=== PATIENT | female | born 1950 | race Caucasian/White ===

== ENCOUNTER 2023-07-24 08:44 | Emergency (ER) | payer MEDICARE, BC, SELFPAY ==
[2023-07-24 08:49] VITALS: BP 92/79
--- NOTE | 2023-07-24 09:50 | ED.GENMED ---
History of Present Illness
<Anu López PA-C - Last Filed: 07/24/23 14:38>
General
Chief Complaint: Musculo-Skeletal Complaint
Source: patient
Exam Limitations: none
Time Seen by Provider: 07/24/23 09:19
Nursing documentation reviewed up to this point in time: agreed with
Travel History
Have you had any contact with someone who has COVID-19?: No
Do you have any symptoms of coronavirus? Fever > 100 degrees, chills, cough, shortness of breath, sore throat, loss of taste or smell, muscle aches, or headache?: No
History of Present Illness
History of Present Illness:
Patient is a 72 year old female w/ history osteoporosis, OA, GERD presenting for evaluation of right knee pain. Patient states symptoms initially started about 1 week ago after doing chair yoga at home. The morning after chair yoga she noticed
clicking and popping in the knee with associated pain. Over the course of the past week patient felt that symptoms were improving and she was able to go for a few walks. Last night, she was getting up from the couch around dinnertime and felt her
knee lock. She endorses significant increase in pain since that time. Pain is worse with flexion and extension of knee. She has been able to bear some weight with knee slightly flexed. She states the pain is localized mainly to the medial aspect of
the knee with some radiation up into the hip and down to the lower leg. She denies any fever, chills, chest pain, shortness of breath. She has not noticed any recent bump behind the knee. At the time of the chair yoga she did not notice any acute
injury. She has tried Advil with minimal improvement. She did start wearing a knee brace that she had at home.
She takes meloxicam 7.5mg daily for arthritis.
Phy Exam
<Anu López PA-C - Last Filed: 07/24/23 14:38>
Physical Exam
Physical Exam:
General: Well appearing and non-toxic, vital signs reviewed- patient afebrile
HEENT: Atraumatic, normocephalic; protecting airway
Neck: appears supple
CV: Regular rate and rhythm, no evidence of cyanosis
Resp: No evidence of respiratory distress, lungs clear, no accessory muscle use
Abd: Soft, nontender, non-distended
Extremities: Mild diffuse swelling of right knee; pain with flexion and extension; right leg neurovascularly intact, negative straight leg raise, no bony tenderness; no pain with internal or external rotation of hips bilaterally
Neuro: alert and oriented to person, place, time; speech normal, no focal motor deficits, no focal neurological deficits
Psych: Normal affect
Skin: Intact, no rashes
Course
<Anu López PA-C - Last Filed: 07/24/23 14:38>
Orders/Labs/Results
Orders:
Orders
07/24/23 08:52
CR Knee- Right 4 Or More View* Urgent
Comment:
Reason For Exam: pain
07/24/23 10:41
Acetaminophen [Tylenol] 650 mg PO NOW STA
Tramadol HCl [Ultram] 50 mg PO NOW STA
07/24/23 10:42
Knee Immobilizer Right-Treatme ONCE
Vital Signs
Initial and Last Documented VS:
Initial Vital Signs
Temp Pulse Resp BP Pulse Ox
98.1 F 73 18 92/79 100
07/24/23 08:49 07/24/23 08:49 07/24/23 08:49 07/24/23 08:49 07/24/23 08:49
Last Documented Vital Signs
Temp Pulse Resp BP Pulse Ox
98.1 F 73 18 92/79 100
07/24/23 08:49 07/24/23 08:49 07/24/23 08:49 07/24/23 08:49 07/24/23 08:49
<Peewee Mora MD - Last Filed: 07/24/23 14:41>
Orders/Labs/Results
Orders:
Orders
07/24/23 08:52
CR Knee- Right 4 Or More View* Urgent
Comment:
Reason For Exam: pain
07/24/23 10:41
Acetaminophen [Tylenol] 650 mg PO NOW STA
Tramadol HCl [Ultram] 50 mg PO NOW STA
07/24/23 10:42
Knee Immobilizer Right-Treatme ONCE
Vital Signs
Initial and Last Documented VS:
Initial Vital Signs
Temp Pulse Resp BP Pulse Ox
98.1 F 73 18 92/79 100
07/24/23 08:49 07/24/23 08:49 07/24/23 08:49 07/24/23 08:49 07/24/23 08:49
Last Documented Vital Signs
Temp Pulse Resp BP Pulse Ox
98.1 F 73 18 92/79 100
07/24/23 08:49 07/24/23 08:49 07/24/23 08:49 07/24/23 08:49 07/24/23 08:49
<Anu López PA-C - Last Filed: 07/24/23 14:38>
MDM/Problems Addressed
Differential Diagnosis Includes:
Knee sprain, osteoarthritis, medial meniscus tear
MDM/Problems Addressed:
Patient is a 72 year old female with history of OA, osteoporosis, GERD presenting for evaluation of right knee pain. Symptoms started about a week ago with clicking and popping following a chair yoga class. Symptoms are improving over the past
week and last night when she stood up from the couch and felt her knee 'lock'. She has significant pain with flexion and weightbearing since. She had no known trauma during chair yoga class. Patient is well-appearing on exam, hemodynamically
stable. She is afebrile. She has very mild diffuse swelling around right knee. Pain worse with flexion and extension of the knee most severe on medial aspect. Right leg neurovascularly intact. X-ray of knee obtained in triage shows no signs of
fracture or dislocation but some degenerative changes. Suspect likely sprain of knee versus meniscal injury. Will place in knee immobilizer. Tylenol and tramadol for pain. She is stable for discharge with return precautions, supportive care at
home, Ortho follow-up as needed. She is comfortable with plan. All questions answered.
Chronic conditions affecting care:
Osteoarthritis, osteoporosis, GERD
Acute Exacerbation and/or Progression of Chronic Illness:
Right knee pain
<Anu López PA-C - Last Filed: 07/24/23 14:38>
*Radiology
Radiology exam reviewed: preliminary read by ED provider and radiology read reviewed
*Pulse Oximetry
Patient hypoxic: no
*Clinical Nurse Manager Interpretation
Rate: Clinical Nurse Manager- N/A
*Critical Care Note
Total Time (30-74mins, 75-104mins- exclusive of procedures): Not Applicable
ED Attending Note
<Anu López PA-C - Last Filed: 07/24/23 14:38>
-
Portions of this chart may have been created with voice recognition software.� Occasional wrong word or��sound alike� substitutions may have occurred due to the inherent limitations of voice recognition software.
<Peewee Mora MD - Last Filed: 07/24/23 14:41>
ED Attending Note
Patient seen and examined by attending physician: Yes
ED Attending Note:
Patient with history osteoporosis, presents to ED secondary to persistent left knee pain, which occurred when she stood up from reclining chair last night. Denies direct trauma. Denies loss of sensation or weakness. Patient has had difficult time
walking secondary to pain. Of note, 1 week ago, patient reports similar knee and leg pain after completing chair yoga session. Pain occurred 1 day after the session. Symptoms gradually improved until complete resolution 1 day ago. Denies
previous history of similar symptoms. Denies fever or chills.
Physical Exam
General: mild painful distress, not acutely ill. afebrile
Head: nc/at. eomi
Neck: supple. no meningeal signs.
Neuro: alert and oriented. no focal neurological deficits
Skin: no rash
Psychiatric: well kept. interactive and cooperative
Extremities: left knee: mild tenderness to palpation over medial aspect of knee without swelling/erythema/ecchymosis. negative valgus/varus maneuver.
X-ray: no acute findings.
History and exam consistent with likely knee strain versus exacerbation of underlying arthritis. Otherwise, patient without any evidence of direct trauma and is neurologically intact. Patient will be given knee immobilizer. The relief, along with
recommendation to utilize cane for support, as well as outpatient follow-up with orthopedic surgeon. Patient expresses understanding at time of discharge, to the care of her daughter.
Discharge Plan
Departure
Patient Disposition: Home (Routine Discharge)
Date of Disposition: 07/24/23
Time of Disposition: 10:48
Patient with high blood pressure during this ER visit?: No
Condition: Good
Covid-19: Not Applicable
Discharge Problem:
Knee pain, right
Instructions: Knee Immobilizer (DC), Knee Pain (DC)
Prescriptions:
New
tramadol 50 mg tablet
50 mg PO Q8H PRN (Reason: Pain) Qty: 14 0RF
Referrals:
Stephanie Dobson I., DO [Active] - As needed
UNKNOWN - PT DOES,NOT KNOW [Family Provider] -
Activity Restrictions/Additional Instructions:
-Return to the emergency department with any high fevers, chest pain, shortness of breath, numbness/tingling in right lower extremity, significant pain in right knee, worsening in current symptoms, or any other concerns
-You can take tylenol as needed for discomfort. A prescription has been sent for tramadol to take every 8 hours as needed for pain. This may cause drowsiness - do not take prior to driving.
-Follow-up with orthopedics for further evaluation/ treatment.
Interventions
Interventions:
*Risk Screen - Suicide Last Done: 07/24/23 11:03
*General Assessment Last Done: 07/24/23 08:49
*Neglect/Abuse Screening Last Done: 07/24/23 11:03
*ED COVID-19 Vaccine History Last Done: 07/24/23 08:49
*Nursing Disposition Last Done: 07/24/23 11:03
ED-Musculoskeletal Assessment Last Done: 07/24/23 10:15
Discharge Date and Time
Discharge Date/Time: 07/24/23 11:04
[2023-07-24] MEDS: TYLENOL 650 MG PO (10:47)
[2023-07-24] MEDS: ULTRAM 50 MG PO (10:47)
== END 2023-07-24 11:04 | disposition home or self-care (01) ==
LOC: EMR 08:44
PROVIDERS: EMERGENCY PHYSICIAN Emergency Medicine
DX: M25.561 Pain in right knee (principal); M81.0 Age-related osteoporosis without current pathological fracture; K21.9 Gastro-esophageal reflux disease without esophagitis
CPT/HCPCS: 99283; 29505; 73564

== ENCOUNTER → 2024-03-02 12:57 | Outpatient (REF) | payer MEDICARE, BC, SELFPAY | LOC: RCS 12:57 | PROVIDERS: ATTENDING PHYSICIAN Student in an Organized Health Care Education/Training Program; FAMILY PHYSICIAN Internal Medicine | DX: R01.1 Cardiac murmur, unspecified (principal) | CPT/HCPCS: 93306 ==

== ENCOUNTER 2024-03-13 11:16 | Inpatient (IN) | payer MEDICARE, BC, SELFPAY ==
[2024-03-13] VITALS (9 sets, daily range): BP systolic 65–151; BP diastolic 53–87; BMI 22.6; BMI 23.2
--- NOTE | 2024-03-13 06:23 | ED.GENMED ---
History of Present Illness
<Malik Freeman MD - Last Filed: 03/13/24 09:20>
General
Chief Complaint: Abdominal Symptoms
Time Seen by Provider: 03/13/24 06:04
<Zach Lawler MD, Resident - Last Filed: 03/14/24 09:15>
General
Source: patient and family
Travel History
Have you traveled to any high risk areas for coronavirus over the past 14 days?: No
Have you had any contact with someone who has COVID-19?: No
Do you have any symptoms of coronavirus? Fever > 100 degrees, chills, cough, shortness of breath, sore throat, loss of taste or smell, muscle aches, or headache?: No
History of Present Illness
History of Present Illness:
Nichole Lombardi, age 73, is here for evaluation of abdominal pain and distention. Her symptoms began on 03-10-24 when she had diarrhea and chills. She went to the urgent care and was prescribed amoxicillin. She also took loperamide that evening. She
has not been able to move her bowels since then, and experienced progressive bloating, distention and pain. She took simethicone which did not improve her symptoms. Of note, she has had chronic intermittent constipation. Denies nausea, vomiting,
fever, chills, night sweats or urinary symptoms.
Past History
<Zach Lawler MD, Resident - Last Filed: 03/14/24 09:15>
Past History
ED Past Medical History: Other (prediabetes; osteoarthritis; gastroesophageal reflux disease)
ED Past Surgical History: Other (tonsillectomy; left breast lumpectomy - benign; sinus polypectomy; )
Social History
Tobacco: Former smoker
Alcohol: Occasional
Drug: None
Review of Systems
<Zach Lawler MD, Resident - Last Filed: 03/14/24 09:15>
Review of Systems
All Other Systems: Not applicable
Constitutional: Reports no symptoms
EENT: Reports no symptoms
Respiratory: Reports no symptoms
Cardiac: Reports no symptoms
ABD/GI: Reports constipated and pain; Denies nausea, vomiting or diarrhea
: Reports no symptoms
Musculoskeletal: Reports no symptoms
Skin: Reports no symptoms
Neurological: Reports no symptoms
Endocrine: Reports no symptoms
Hematologic/Lymphatic: Reports no symptoms
Psychiatric: Reports no symptoms
Phy Exam
<Zach Lawler MD, Resident - Last Filed: 03/14/24 09:15>
General Physical Exam
General Presentation: well appearing and no apparent distress
General Skin: warm and dry
General Habitus: normal
General Mental: alert
General Hydration: appears well hydrated
ENT Exam
ENT Exam: EOMI, pharynx normal, neck supple and normocephalic
Eye Exam
Eye Exam: PERRL, cornea clear and conjunctiva normal
Cardiovascular Exam
Cardiovascular Exam: regular rate/rhythm, no edema, no murmur and normal peripheral pulses
Pulmonary Exam
Pulmonary Exam: lungs clear, no respiratory distress, no rales, no crackles, no rhonchi, no stridor, no wheezing and no cough
Gastrointestinal Exam
Gastrointestinal Exam: soft, no organomegaly, no cva tenderness, distended and tender
Palpation: left lower quadrant: Moderate tenderness and generalized: Minimal tenderness
Neurological Exam
Neurological Exam: alert, oriented x3, no motor deficits and speech normal
Musculoskeletal Exam
Musculoskeletal Exam: full ROM and no edema
Skin Exam
Skin Exam: normal color, warm/dry, no rash and no petechia
Psychiatric Exam
Psychiatric Exam: normal mood/affect
Course
<Malik Freeman MD - Last Filed: 03/13/24 09:20>
Orders/Labs/Results
Orders:
Orders
03/13/24 06:07
IV Insert/Care/Rem.- Treatment PRN
03/13/24 06:22
CT Abd/pelvis W Iv Cont Urgent
Comment:
Reason For Exam: LLQ abd pain
03/13/24 06:30
Complete Blood Count/With Diff Urgent
Comprehensive Metabolic Panel Urgent
Lipase Urgent
03/13/24 08:55
Urinalysis Reflex To Culture Urgent
Date Specimen was Collected: 03/13/24
Time Specimen was Collected: 06:38
Urine Microscopic Reflex Cult Urgent
03/13/24 09:07
Piperacillin/Tazo 3.375 Gram [Zosyn] 3.375 gram in 50 ml IV NOW
03/13/24 09:12
IRAD CONSULT Urgent
Consulting Provider: Donell Eduardo
Was physician already notified: Yes
Reason for Consult/Procedure: intraabdominal abscess drainage
Acknowledgement that appropriate orders are entered: Yes
03/13/24 09:17
ColoRectal Surgery Consult Urgent
Consulting Provider: Quique Miller
Was physician already notified: Yes
03/13/24 Lunch
NPO
Allow oral meds: Yes
Allow clear liquids: No
Comment: sips of clears only with pills. NPO for IRAD procedure
03/13/24 10:05
Pantoprazole [Protonix IV] 40 mg .ROUTE .STK-MED ONE
03/13/24 10:30
Pantoprazole [Protonix IV] 40 mg IV NOW STA
03/13/24 10:32
PT/INR [Prothrombin Time] Urgent
03/13/24 11:01
Admit/Transfer Patient As Directed
Co-Sign Provider:
Level of Care: Inpatient admission
Assign to:: Telemetry
Physician / Group: Dr. Broderick Marquita/Hospitalists
Diagnosis: Colitis, bowel perforation and abscess
Reason for Telemetry: Arrhythmia
Date to Stop Telemetry: 03/16/24
Time to Stop Telemetry: 11:00
Reason for Hospitalization: Colitis, bowel perforation and abscess
Expected length of stay greater than two midnights?: Yes
ELOS- Estimated Length of Stay in days: 3
I certify the patient meets the requirements for IP care: Yes
PRN Pain Medication Management As Directed
May give lesser potent ordered pain med per pt: Yes
preference::
Protocol:: Medication orders for pain may be administered in a
manner that supports deferring to patient preference
when the pt is:
- Requesting an ordered lesser potent pain medication.
Least to most potent pain medications are defined
as: acetaminophen < NSAID < tramadol < opioids
(morphine, oxycodone, hydromorphone).
- Requesting a lesser dose of the same medication IF
ORDERED.
- Requesting a less intrusive route of administration
if both routes are prescribed by the provider (PO <
IV).
03/13/24 11:03
Code Status As Directed
Resuscitation Status: Full Code
03/13/24 12:00
CefTRIAXone [Rocephin] 2,000 mg IV Q24H
Sterile Water [Sterile Water For Injection] 20 ml IV Q24H
03/13/24 14:00
MetroNIDAZOLE 500 MG/100 ML [Flagyl 500 mg] 100 ml IV Q8H
03/13/24 16:39
Activity As Directed
Activity Level: As Tolerated
Intake/ Output As Directed
Frequency: q12h
Pneumatic Compression Sleeves As Directed
Type: Knee high
Vital Signs As Directed
Frequency: Per unit guidelines
DX Deep Vein Thrombosis Video Routine
03/13/24 18:00
Enoxaparin Sodium [Lovenox] 40 mg SC QPM
03/14/24 06:42
Basic Metabolic Panel IN AM
Complete Blood Count/With Diff IN AM
Magnesium IN AM
03/14/24 08:00
Cholecalciferol (Vitamin D3) [VITAMIN D3 (cholecalciferol)] 25 mcg PO DAILY
Multivitamin [Theragran] 1 tablet PO DAILY
Pantoprazole [Protonix] 40 mg PO DAILY
glucosamine-chondroitin [Osteo Bi-Flex] 1 tablet PO DAILY
03/15/24 06:00
Basic Metabolic Panel IN AM
Complete Blood Count/With Diff IN AM
03/16/24 06:00
Basic Metabolic Panel IN AM
Complete Blood Count/With Diff IN AM
03/16/24 11:00
DC Protocol for Telemetry ONCE
03/17/24 06:00
Basic Metabolic Panel IN AM
Complete Blood Count/With Diff IN AM
03/18/24 06:00
Basic Metabolic Panel IN AM
Complete Blood Count/With Diff IN AM
03/19/24 06:00
Basic Metabolic Panel IN AM
Complete Blood Count/With Diff IN AM
03/20/24 06:00
Basic Metabolic Panel IN AM
Complete Blood Count/With Diff IN AM
03/21/24 06:00
Basic Metabolic Panel IN AM
Complete Blood Count/With Diff IN AM
03/22/24 06:00
Basic Metabolic Panel IN AM
Complete Blood Count/With Diff IN AM
03/23/24 06:00
Basic Metabolic Panel IN AM
Complete Blood Count/With Diff IN AM
Abnormal Lab Results
03/13/24 03/13/24
06:30 08:55
RBC 4.16 L 10^6/uL
(4.20-5.40)
Hgb 11.3 L g/dL
(12.0-16.0)
Hct 33.1 L %
(37.0-47.0)
MCV 79.6 L fL
(81.0-99.0)
MPV 11.5 H fL
(7.4-10.4)
Abs Immat Gran (auto) 0.1 H 10^3/uL
(0-0.05)
Absolute Neuts (auto) 7.3 H 10^3/uL
(1.4-6.5)
Absolute Lymphs (auto) 0.9 L 10^3/uL
(1.2-3.4)
Immature Gran % 0.8 H %
(0-0.5)
Neutrophils % 81.5 H %
(42.2-75.2)
Lymphocytes % 10.4 L %
(20.5-51.1)
Glucose 101 H mg/dl
(70-99)
Total Protein 5.9 L g/dl
(6.3-8.2)
Urine Ketones 2+ A
(Negative)
Urine Bilirubin 1+ A
(Negative)
Leukocyte Esterase Rfl Trace A
(Negative)
03/13/24 06:30
03/13/24 06:30
Vital Signs
Initial and Last Documented VS:
Initial Vital Signs
Temp Pulse Resp BP Pulse Ox
98.3 F 79 20 128/71 100
03/13/24 05:41 03/13/24 05:41 03/13/24 05:41 03/13/24 05:41 03/13/24 05:41
Last Documented Vital Signs
Temp Pulse Resp BP Pulse Ox
97.9 F 64 16 134/62 100
03/14/24 07:00 03/14/24 07:00 03/14/24 07:00 03/14/24 07:00 03/14/24 07:00
<Zach Lawler MD, Resident - Last Filed: 03/14/24 09:15>
Orders/Labs/Results
Orders:
Orders
03/13/24 06:07
IV Insert/Care/Rem.- Treatment PRN
03/13/24 06:22
CT Abd/pelvis W Iv Cont Urgent
Comment:
Reason For Exam: LLQ abd pain
03/13/24 06:30
Complete Blood Count/With Diff Urgent
Comprehensive Metabolic Panel Urgent
Lipase Urgent
03/13/24 08:55
Urinalysis Reflex To Culture Urgent
Date Specimen was Collected: 03/13/24
Time Specimen was Collected: 06:38
Urine Microscopic Reflex Cult Urgent
03/13/24 09:07
Piperacillin/Tazo 3.375 Gram [Zosyn] 3.375 gram in 50 ml IV NOW
03/13/24 09:12
IRAD CONSULT Urgent
Consulting Provider: Donell Eduardo
Was physician already notified: Yes
Reason for Consult/Procedure: intraabdominal abscess drainage
Acknowledgement that appropriate orders are entered: Yes
03/13/24 09:17
ColoRectal Surgery Consult Urgent
Consulting Provider: Quique Miller
Was physician already notified: Yes
03/13/24 Lunch
NPO
Allow oral meds: Yes
Allow clear liquids: No
Comment: sips of clears only with pills. NPO for IRAD procedure
03/13/24 10:05
Pantoprazole [Protonix IV] 40 mg .ROUTE .STK-MED ONE
03/13/24 10:30
Pantoprazole [Protonix IV] 40 mg IV NOW STA
03/13/24 10:32
PT/INR [Prothrombin Time] Urgent
03/13/24 11:01
Admit/Transfer Patient As Directed
Co-Sign Provider:
Level of Care: Inpatient admission
Assign to:: Telemetry
Physician / Group: Dr. Broderick Juárez/Hospitalists
Diagnosis: Colitis, bowel perforation and abscess
Reason for Telemetry: Arrhythmia
Date to Stop Telemetry: 03/16/24
Time to Stop Telemetry: 11:00
Reason for Hospitalization: Colitis, bowel perforation and abscess
Expected length of stay greater than two midnights?: Yes
ELOS- Estimated Length of Stay in days: 3
I certify the patient meets the requirements for IP care: Yes
PRN Pain Medication Management As Directed
May give lesser potent ordered pain med per pt: Yes
preference::
Protocol:: Medication orders for pain may be administered in a
manner that supports deferring to patient preference
when the pt is:
- Requesting an ordered lesser potent pain medication.
Least to most potent pain medications are defined
as: acetaminophen < NSAID < tramadol < opioids
(morphine, oxycodone, hydromorphone).
- Requesting a lesser dose of the same medication IF
ORDERED.
- Requesting a less intrusive route of administration
if both routes are prescribed by the provider (PO <
IV).
03/13/24 11:03
Code Status As Directed
Resuscitation Status: Full Code
03/13/24 12:00
CefTRIAXone [Rocephin] 2,000 mg IV Q24H
Sterile Water [Sterile Water For Injection] 20 ml IV Q24H
03/13/24 14:00
MetroNIDAZOLE 500 MG/100 ML [Flagyl 500 mg] 100 ml IV Q8H
03/13/24 16:39
Activity As Directed
Activity Level: As Tolerated
Intake/ Output As Directed
Frequency: q12h
Pneumatic Compression Sleeves As Directed
Type: Knee high
Vital Signs As Directed
Frequency: Per unit guidelines
DX Deep Vein Thrombosis Video Routine
03/13/24 18:00
Enoxaparin Sodium [Lovenox] 40 mg SC QPM
03/14/24 06:42
Basic Metabolic Panel IN AM
Complete Blood Count/With Diff IN AM
Magnesium IN AM
03/14/24 08:00
Cholecalciferol (Vitamin D3) [VITAMIN D3 (cholecalciferol)] 25 mcg PO DAILY
Multivitamin [Theragran] 1 tablet PO DAILY
Pantoprazole [Protonix] 40 mg PO DAILY
glucosamine-chondroitin [Osteo Bi-Flex] 1 tablet PO DAILY
03/15/24 06:00
Basic Metabolic Panel IN AM
Complete Blood Count/With Diff IN AM
03/16/24 06:00
Basic Metabolic Panel IN AM
Complete Blood Count/With Diff IN AM
03/16/24 11:00
DC Protocol for Telemetry ONCE
03/17/24 06:00
Basic Metabolic Panel IN AM
Complete Blood Count/With Diff IN AM
03/18/24 06:00
Basic Metabolic Panel IN AM
Complete Blood Count/With Diff IN AM
03/19/24 06:00
Basic Metabolic Panel IN AM
Complete Blood Count/With Diff IN AM
03/20/24 06:00
Basic Metabolic Panel IN AM
Complete Blood Count/With Diff IN AM
03/21/24 06:00
Basic Metabolic Panel IN AM
Complete Blood Count/With Diff IN AM
03/22/24 06:00
Basic Metabolic Panel IN AM
Complete Blood Count/With Diff IN AM
03/23/24 06:00
Basic Metabolic Panel IN AM
Complete Blood Count/With Diff IN AM
Abnormal Lab Results
03/13/24 03/13/24
06:30 08:55
RBC 4.16 L 10^6/uL
(4.20-5.40)
Hgb 11.3 L g/dL
(12.0-16.0)
Hct 33.1 L %
(37.0-47.0)
MCV 79.6 L fL
(81.0-99.0)
MPV 11.5 H fL
(7.4-10.4)
Abs Immat Gran (auto) 0.1 H 10^3/uL
(0-0.05)
Absolute Neuts (auto) 7.3 H 10^3/uL
(1.4-6.5)
Absolute Lymphs (auto) 0.9 L 10^3/uL
(1.2-3.4)
Immature Gran % 0.8 H %
(0-0.5)
Neutrophils % 81.5 H %
(42.2-75.2)
Lymphocytes % 10.4 L %
(20.5-51.1)
Glucose 101 H mg/dl
(70-99)
Total Protein 5.9 L g/dl
(6.3-8.2)
Urine Ketones 2+ A
(Negative)
Urine Bilirubin 1+ A
(Negative)
Leukocyte Esterase Rfl Trace A
(Negative)
03/13/24 06:30
03/13/24 06:30
Vital Signs
Initial and Last Documented VS:
Initial Vital Signs
Temp Pulse Resp BP Pulse Ox
98.3 F 79 20 128/71 100
03/13/24 05:41 03/13/24 05:41 03/13/24 05:41 03/13/24 05:41 03/13/24 05:41
Last Documented Vital Signs
Temp Pulse Resp BP Pulse Ox
97.9 F 64 16 134/62 100
03/14/24 07:00 03/14/24 07:00 03/14/24 07:00 03/14/24 07:00 03/14/24 07:00
<Zach Lawler MD, Resident - Last Filed: 03/14/24 09:15>
*Critical Care Note
Total Time (30-74mins, 75-104mins- exclusive of procedures): Not Applicable
ED Attending Note
<Malik Freeman MD - Last Filed: 03/13/24 09:20>
ED Attending Note
Patient seen and examined by attending physician: Yes
I performed a history and physical exam of patient and discussed management with resident, I reviewed resident's note and agree with documented findings and plan of care.: Yes
ED Attending Note:
I have seen and evaluated the patient with a [id number] encounter. I have spoken to the resident and involved in the medical history, the physical exam, medical decision making.
Evaluation and management service: agree unless noted differently below.
Results interpretation: agree unless noted differently below.
Focused HPI: 73-year-old female with history of GERD presents to the emergency department for evaluation of abdominal pain. Patient reports onset of symptoms Tuesday and have been consistent since that time�initially an intense cramping pain now
more of an aching/soreness in the lower abdomen. Initially was associated with diarrhea on Tuesday although since then she has noted bloating and constipation. She said she has some subjective chills on Tuesday but no fever. Denies any nausea
or vomiting. Denies any urinary symptoms. She denies similar symptoms in the past. She was prescribed Augmentin by but symptoms have not improved which prompted ER visit.
Physical exam: Awake alert no distress. Vital signs normal. No cardiac rubs gallops or murmurs. Lungs clear to auscultation. Abdomen soft, mildly tender across lower abdomen with no peritoneal signs or masses appreciated. No CVA tenderness.
Medical Decision Makin-year-old female presents for evaluation of abdominal pain initially associate with diarrhea now with constipation and bloating. Vital signs normal. Exam as above. Will check labs including a CBC and a CMP. Check
urinalysis. Check CT abdomen pelvis. Suspect likely diverticulitis.
Labs reviewed: CBC shows mild anemia but no leukocytosis, CMP no clinically significant abnormalities. Urinalysis no signs of acute infection. Awaiting CT.
CT abdomen pelvis shows sigmoid colitis with probable 3.8 cm microperforation and abscess in the posterior pelvis. No free air noted. Case discussed with interventional radiology to review, likely drainable abscess. Case discussed with colorectal
surgery for consultation. Will treat with IV Zosyn. Case discussed with hospitalist for admission.
<Zach Lawler MD, Resident - Last Filed: 03/14/24 09:15>
-
Portions of this chart may have been created with voice recognition software.� Occasional wrong word or��sound alike� substitutions may have occurred due to the inherent limitations of voice recognition software.
Discharge Plan
Departure
Patient Disposition: Admit
Date of Disposition: 03/13/24
Time of Disposition: 09:14
Admit to doctor: Beni
Presentation/result/management discussed w/ accepting MD/DO: Hospitalist
Discharge Problem:
Colitis, Abdominal abscess
Interventions
Interventions:
*Risk Screen - Suicide Last Done: 03/13/24 05:41
*General Assessment Last Done: 03/13/24 05:41
*Neglect/Abuse Screening Last Done: 03/13/24 05:41
ED- Fall Risk Assessment Last Done: 03/13/24 08:00
*ED COVID-19 Vaccine History Last Done: 03/13/24 05:46
*Nursing Disposition Last Done: 03/13/24 16:33
RG-Akdqvc-Tewjxvgaed Assessment Last Done: 03/13/24 08:00
Discharge Date and Time
Discharge Date/Time: 03/13/24 16:34
[2024-03-13 07:10] LABS: % Basophils 0.3 % (0-2); % Immature Granulocytes 0.8 % (0-0.5); % Lymphocytes 10.4 % (20.5-51.1); % Neutrophils 81.5 % (42.2-75.2); Absolute Eosinophils 0.1 10^3/uL (0-0.7); Absolute Immature Granulocytes 0.1 10^3/uL (0-0.05); Absolute Lymphocytes 0.9 10^3/uL (1.2-3.4); Absolute Monocytes 0.5 10^3/uL (0.1-0.6); Absolute Neutrophils 7.3 10^3/uL (1.4-6.5); Hematocrit 33.1 % (37.0-47.0); Hemoglobin 11.3 g/dL (12.0-16.0); Mean Corp Hgb Conc. 34.1 g/dL (33.0-37.0); Mean Corpuscular Hgb 27.2 pg (27.0-31.0); Mean Corpuscular Volume 79.6 fL (81.0-99.0); Mean Platelet Volume 11.5 fL (7.4-10.4); Nucleated Red Blood Cells % 0 %; Platelet Count 189 10^3/uL (130-400); Red Blood Cell Count 4.16 10^6/uL (4.20-5.40); Red Cell Dist. Width 13.4 % (11.5-14.5)
[2024-03-13 07:14] LABS: ALT (SGPT) 24 U/L (0-35); AST (SGOT) 23 U/L (14-36); Albumin 3.5 g/dl (3.5-5.0); Alkaline Phosphatase 103 U/L (38-126); Blood Urea Nitrogen 13 mg/dl (7-17); Calcium 9.6 mg/dl (8.4-10.2); Carbon Dioxide 24 mmol/L (22-30); Chloride 104 mmol/L (98-107); Estimated Creatinine Clearance 55 ml/min; Glucose 101 mg/dl (70-99); Lipase 36 U/L (23-300); Potassium 3.6 mmol/L (3.5-5.1); Sodium 141 mmol/L (135-145); Total Bilirubin 0.9 mg/dl (0.2-1.3); Total Protein 5.9 g/dl (6.3-8.2); eGFR > 60.00
[2024-03-13 09:14] LABS: Urine Albumin Trace (Neg - Trace); Urine Bilirubin 1+ (Negative); Urine Character Clear (Clear); Urine Color Yellow; Urine Glucose Negative (Negative); Urine Ketone 2+ (Negative); Urine Leukocyte Trace (Negative); Urine Nitrite Negative (Negative); Urine Occult Blood Negative (Negative); Urine Urobilinogen Negative (Neg - 1+)
[2024-03-13] MEDS: ZOSYN 50 IV (09:23)
[2024-03-13 09:26] LABS: Urine Mucus Few
[2024-03-13 09:27] LABS: Urine Red Blood Cell 0-2 /HPF (0-2); Urine Squamous Cell 0-2 /LPF (Few)
[2024-03-13] MEDS: PROTONIX IV 40 MG IV (10:30)
[2024-03-13 10:57] LABS: INR 1.06; PT 13.6 Sec (11.4-14.6)
--- NOTE | 2024-03-13 11:04 | CON.CRS ---
Consultation
-
Date/Time Consultation Requested: 03/13/2024, 09:17
Date/Time Consultation Performed: 03/03/2024, 12:00
Requesting Provider: Malik Freeman MD
Performing Provider: Nuno Miller MD
Reason for Consultation: diverticulitis
Medical History
-
Chief Complaint: abdominal pain
History of Present Illness:
73yo female, with a past medical history of GERD and pre-diabetes, presents to [facility] ER this morning complaining of abdominal pain, distention, and constipation. The patient states her abdominal pain began on 03/10/24 which began with
diarrhea and chills. She went to urgent care and was prescribed amoxicillin. She took loperamide due to diarrhea, and developed constipation and bloating. On arrival to the ER, her WBC was 9.0. CT A/P shows probably colitis involving the sigmoid
colon. Probable 3.8 cm confined perforation with abscess in the posterior pelvis. We have been consulted for further surgical recommendations.
Past Medical History
Past Medical History: Other (prediabetes; osteoarthritis; gastroesophageal reflux disease)
Past Surgical History: , Gynecological (left breast lumpectomy), Tonsilectomy and Other (sinus polypectomy)
Social History
Tobacco: Former Smoker
Alcohol: Occasional
Drug: None
Family History
Family History: Reviewed & Not Pertinent
Allergies / Home Medications
Allergy/AdvReac Type Severity Reaction Status Date / Time
doxycycline Allergy Unknown Verified 03/13/24 05:46
�Medication �Instructions �Recorded �Confirmed �Type
amoxicillin 875 mg-potassium 1 tab PO BID 03/13/24 03/13/24 History
clavulanate 125 mg tablet
cholecalciferol (vitamin D3) 25 25 mcg PO DAILY 03/13/24 03/13/24 History
mcg (1,000 unit) tablet
glucosamine-chondroitin 250 mg-200 1 tab PO DAILY 03/13/24 03/13/24 History
mg tablet (Osteo Bi-Flex)
meloxicam 7.5 mg tablet 7.5 mg PO DAILY 03/13/24 03/13/24 History
omeprazole 20 mg capsule,delayed 20 mg PO DAILY 03/13/24 03/13/24 History
release
therapeutic multivitamin 1 tab PO DAILY 03/13/24 03/13/24 History
turmeric 400 mg capsule 400 mg PO DAILY 03/13/24 03/13/24 History
Review of Systems
-
History Source: Patient
Constitutional: Chills
Abdomen/GI: Abdominal Pain, Diarrhea and Constipated
A 10 point review of systems was completed, and was negative except as per HPI.
Physical Exam
Vital Signs
Temp 98.3 F 03/13/24 05:41
Pulse 71 03/13/24 10:31
Resp Rate 18 03/13/24 10:31
Blood pressure 129/87 03/13/24 10:31
SaO2 99 03/13/24 10:31
03/12/24 03/13/24 03/14/24
06:59 06:59 06:59
Actual Weight 55.1 kg
Body Mass Index (BMI) 22.6
Lab Results / Allergies
03/13/24 06:30
03/13/24 06:30
WBC 9.0 10^3/uL (4.8-10.8) 03/13/24 06:30
Hgb 11.3 g/dL (12.0-16.0) L 03/13/24 06:30
Hct 33.1 % (37.0-47.0) L 03/13/24 06:30
Plt Count 189 10^3/uL (130-400) 03/13/24 06:30
Abs Immat Gran (auto) 0.1 10^3/uL (0-0.05) H 03/13/24 06:30
Neutrophils % 81.5 % (42.2-75.2) H 03/13/24 06:30
Allergy/AdvReac Type Severity Reaction Status Date / Time
doxycycline Allergy Unknown Verified 03/13/24 05:46
Physical Exam
General: Well Developed and Well Nourished
GI: Soft, Non Tender and Non Distended
Skin: Warm and Dry
Neuro: AO x 3
Data Reviewed
-
CT Scan: Image Personally Visualized and interpreted, Report Reviewed by me and Discussed with Patient
Labs: Labs Reviewed by me, Discussed with Physician and Discussed with Patient
Old Records: Requested
Assessment / Plan
-
Assessment:
Plan:
-Agree with IR for drain placement
-Continue NPO and IVFs today
-IV antibiotics
-No urgent plans for surgery at this time. If she worsens, she will require a colectomy with colostomy creation. Discussed with patient.
--- NOTE | 2024-03-13 11:07 | HPS.HSE ---
Family Physician
-
Family Physician: Alex Rutherford MD
Chief Complaint
-
Abdominal Pain, Diarrhea
History of Present Illness
73 y/o female with past medical history of intermittent constipation, GERD, and arthritis, presented after she developed abdominal pain and diarrhea several days ago. Patient said she flew to [place] and went to [place], [place], five days
ago. Then, about 2.5 days later, she developed non-bloody diarrhea and chills, she then took Imodium but then had severe cramping abdominal pain. She then toook 2 Advil which helped relieve her pain, she then developed night sweats 1.5 days ago,
still had abdominal pain which had actually improved. She flew back to [place], [place] yesterday, went to urgent care where a urinalysis was done not suggesting urinary tract infection but she was given antibiotics just in case. Patient says she
still has some abdominal tenderness.
Medical History
Past Medical History
Past Medical History: Reports Other (As per HPI above)
Past Surgical History: Reports and Other (Nasal Polyp Removal, Left-Sided Benign Breast Tumor Removal)
Social History
Tobacco: Former Smoker
Alcohol: None
Drug: None
Family History
Family History: Cancer (Brain Tumor in Mother) and Other (Pre-Diabetes Mellitus)
Allergies / Home Medications
Allergies reflects when Allergies were last updated in [facility].
Home Medications with original date entered in [facility]
Allergy/Medication List:
Allergies
Allergy/AdvReac Type Severity Reaction Status Date / Time
doxycycline Allergy Unknown Verified 03/13/24 05:46
Home Medications
amoxicillin 875 mg-potassium clavulanate 125 mg tablet 1 tab PO BID 03/13/24
cholecalciferol (vitamin D3) 25 mcg (1,000 unit) tablet 25 mcg PO DAILY 03/13/24
glucosamine-chondroitin 250 mg-200 mg tablet (Osteo Bi-Flex) 1 tab PO DAILY 03/13/24
meloxicam 7.5 mg tablet 7.5 mg PO DAILY 03/13/24
omeprazole 20 mg capsule,delayed release 20 mg PO DAILY 03/13/24
therapeutic multivitamin 1 tab PO DAILY 03/13/24
turmeric 400 mg capsule 400 mg PO DAILY 03/13/24
Review of Systems
-
A 12 point ROS was completed and negative except as noted: Yes
Physical Exam
Vital Signs
Vital Signs
Temp Pulse Resp BP Pulse Ox
98.3 F 71 18 129/87 99
03/13/24 05:41 03/13/24 10:31 03/13/24 10:31 03/13/24 10:31 03/13/24 10:31
Physical Exam
General: No Apparent Distress, Comfortable and Conversant
HEENT: NormoCephalic and Moist mucous membranes
Respiratory: Clear
Cardiac: S1/S2 and Regular Rhythm
GI: Soft, Non Distended and Tender (Mild tenderness in the bilateral mid and lower quadrants. Rebound tenderness present.)
Musculoskeletal: No Cyanosis and No Edema
Skin: Warm and Dry
Neuro: Awake, Alert, AO x 3 and Nonfocal/grossly intact
Psych: Calm and Intact Judgment/Insight
Laboratory Results
-
03/13/24 06:30
03/13/24 06:30
Laboratory Results
PT 13.6 Sec (11.4-14.6) 03/13/24 10:32
INR 1.06 03/13/24 10:32
Total Bilirubin 0.9 mg/dl (0.2-1.3) 03/13/24 06:30
AST 23 U/L (14-36) 03/13/24 06:30
ALT 24 U/L (0-35) 03/13/24 06:30
Alkaline Phosphatase 103 U/L (38-126) 03/13/24 06:30
Lipase 36 U/L (23-300) 03/13/24 06:30
Impression/Plan
-
Assessment/Plan
Presentation with abdominal pain, diarrhea, chills
Probable Sigmoid Colitis on CT Imaging
Colonic Diverticula on CT Imaging
Colonic Abscess
Colonic Perforation
-Zosyn given in the ER
-Continue antibiotics with Rocephin and Flagyl
-IR drainage procedure
-NPO, bowel rest
-Colorectal surgery consulted, appreciate evaluation and recommendations
History of intermittent constipation
GERD
-Continue home PPI or equivalent when able
Arthritis
-Monitor for any pain
DVT PPx: Lovenox
Code Status: Full Code
--- NOTE | 2024-03-13 13:14 | CM ---
Addendum entered by Salome Apple 03/13/24 13:30:
Patient shared she usually sleeps on the couch on the 1st floor. There is a 1st floor set up in the home.
Addendum entered by Salome Apple 03/13/24 13:22:
Edit: Alex Santos
Original Note:
CM reviewed patient's chart. Spoke with patient at bedside. CM introduced self and role.
PCP: Dr. Alex Ulloa
Pharmacy: [facility] in [place] on [address]
Living situation: Patient lives with her . She is his caregiver. Her is legally blind and . Due to his diabetes, his eyes hemorrhaged and needed laser treatment to stop the bleeding. The laser treatment left scar tissue over his
eyes. She lives in [facility] [facility]. 7 steps to enter.
Finances: Patient denies any social insecurities. She is able to afford her housing, clothing, medications, food, utilities and transportation. She is retired. 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
DME/Ambulation: Patient ambulates independently. She does not own any DME. Patient is looking for a light 'pull-apart' scooter (so she can put it in the trunk), for her .
Transportation: Patient's daughter, Miriam, will provide transportation once she is discharged. Patient does drive.
Agreeable to home health care?: Yes, if needed.
ANTICIPATED DISCHARGE DISPOSITION: Home with
CM will continue to follow case and available for further assistance.
--- NOTE | 2024-03-13 15:34 | W.PN.UPDATE ---
Update Note
Progress Note Update
CT guided pelvic abscess drain placed, yielding 6 cc of blood tinged fluid mixed with pus. Sent for C+S.
D/W patient's son in law, who is a physician.
[2024-03-13] MEDS: FLAGYL 500 MG 100 IV ×2 (16:58→21:14)
[2024-03-13] MEDS: ROCEPHIN 2000 MG IV (16:58)
[2024-03-13] MEDS: STERILE WATER FOR INJECTION 20 ML IV (16:58)
[2024-03-13] MEDS: NSS 1000 IV (17:14)
[2024-03-13] MEDS: LOVENOX 40 MG SC (17:17)
[2024-03-13] MEDS: TYLENOL 1000 MG PO (18:07)
[2024-03-13] MEDS: TORADOL 15 MG IV (21:14)
--- NOTE | 2024-03-13 23:37 | W.PN.UPDATE ---
Update Note
Progress Note Update
The patient was seen and examined earlier. I reviewed the medical record and imaging studies, full consult to follow.
73-year-old female admitted earlier today with her first episode of sigmoid diverticulitis with a pelvic abscess. She remains hemodynamically stable and is not tachycardic. Her white count is normal and a CT scan of the abdomen and pelvis with
contrast reveals a 3.8 cm abscess associated with mild inflammation of the sigmoid colon. She underwent percutaneous drainage by IR via a transgluteal catheter. Approximately 6 mm of bloody purulent fluid was aspirated and cultures were sent. She
is up-to-date on colonoscopies.
On exam she appears quite comfortable. Her abdomen is soft and nontender.
I reviewed the current findings and treatment options. We discussed surgical management versus nonoperative management with the risks and benefits of each. At the present time I do not feel surgery is necessary. I explained that the catheter will
remain in place until the output reduces. Most often patients are discharged with a catheter and an outpatient catheter study will be arranged to rule out a persistent abscess or fistula. Ultimately she might require surgery depending upon her
clinical course. For now I recommend continuing with antibiotics and the drain. Clear liquids ordered. Surgery to be considered if her condition worsens. All questions answered and will follow with you.
[2024-03-14] MEDS: TYLENOL 1000 MG PO ×3 (02:32→17:03)
[2024-03-14 03:19] VITALS: BP 121/52
[2024-03-14] MEDS: FLAGYL 500 MG 100 IV ×3 (05:54→21:49)
[2024-03-14 07:00] VITALS: BP 134/62
[2024-03-14 07:11] LABS: % Basophils 0.6 % (0-2); % Eosinophils 1.1 % (0-6); % Immature Granulocytes 0.8 % (0-0.5); % Lymphocytes 16.4 % (20.5-51.1); % Monocytes 7.6 % (1.7-9.3); % Neutrophils 73.5 % (42.2-75.2); Absolute Eosinophils 0.1 10^3/uL (0-0.7); Absolute Immature Granulocytes 0.1 10^3/uL (0-0.05); Absolute Lymphocytes 1.1 10^3/uL (1.2-3.4); Absolute Monocytes 0.5 10^3/uL (0.1-0.6); Absolute Neutrophils 4.9 10^3/uL (1.4-6.5); Hematocrit 32.6 % (37.0-47.0); Hemoglobin 10.9 g/dL (12.0-16.0); Mean Corp Hgb Conc. 33.4 g/dL (33.0-37.0); Mean Corpuscular Volume 80.9 fL (81.0-99.0); Nucleated Red Blood Cells % 0 %; Platelet Count 196 10^3/uL (130-400); Red Blood Cell Count 4.03 10^6/uL (4.20-5.40); Red Cell Dist. Width 13.3 % (11.5-14.5); White Blood Cell Count 6.6 10^3/uL (4.8-10.8)
[2024-03-14 07:35] LABS: Blood Urea Nitrogen 14 mg/dl (7-17); Calcium 9.2 mg/dl (8.4-10.2); Carbon Dioxide 17 mmol/L (22-30); Chloride 108 mmol/L (98-107); Estimated Creatinine Clearance 54 ml/min; Glucose 67 mg/dl (70-99); Magnesium 1.7 mg/dl (1.6-2.3); Potassium 3.5 mmol/L (3.5-5.1); Sodium 142 mmol/L (135-145); eGFR > 60.00
[2024-03-14] MEDS: PROTONIX 40 MG PO (07:46)
[2024-03-14] MEDS: THERAGRAN 1 TABLET PO (07:46)
[2024-03-14] MEDS: NSS 1000 IV (07:46)
[2024-03-14] MEDS: VITAMIN D3 (cholecalciferol) 25 MCG PO (07:46)
[2024-03-14 11:00] VITALS: BP 132/68
--- NOTE | 2024-03-14 11:19 | W.PN.CRS1 ---
Today's Communication / Plan
-
full liquids
continue drain/iv antibiotics
Assessment/Plan
-
3.8 cm abscess associated with mild inflammation of the sigmoid colon, s/p IR drain
- WBC normal, vitals normal. Monitor.
- Advance diet to fulls.
- Continue IR drain in place - will need eventual study as an outpatient
- Continue IV antibiotics
- Cultures pending
- May ultimately require surgery, to be discussed as an outpatient
Subjective Data
Subjective Data
Date of Service: March 14, 2024
Patient states she is feeling much improved after her IR drain. She has no abdominal pain. She is tolerating clears. She denies nausea or vomiting.
Objective Data
-
Vital Signs
Temp Pulse Resp BP Pulse Ox
97.9 F 64 16 134/62 100
03/14/24 07:00 03/14/24 07:00 03/14/24 07:00 03/14/24 07:00 03/14/24 07:00
Intake & Output
03/13/24 03/14/24 03/15/24
06:59 06:59 06:59
Intake Total 565 / 565
Output Total 5
Balance 560 / 560
Intake:
Oral fluids 480 / 480
IV fluids (Total) 75 / 75
NSS 75 / 75
Amount instilled into Drain (
Total)
Left Lower Back Placed in IR
Output:
Drain Output (Total)
Left Lower Back Placed in IR
Other:
Number of approximated MODERATE 1
amounts of urine
Lab Results
03/14/24 06:42
03/14/24 06:42
Physical Exam
-
General: No Acute Distress and AOx3
Abdomen: Soft, Non Distended, Non Tender and Other (IR drain : serosanginous)
Skin: Warm and Dry
[2024-03-14] MEDS: ROCEPHIN 2000 MG IV (11:56)
[2024-03-14] MEDS: STERILE WATER FOR INJECTION 20 ML IV (11:56)
--- NOTE | 2024-03-14 14:55 | VNURNOTE ---
Home Health Liaison met with patient and family at bedside to discuss [facility] nurse/therapy, visits, schedule and homebound status. Patient is agreeable and understands that visits at home will be 2-3 x per week to assess and teach drain and medical
management. Reviewed with patient homebound status and that [facility] cannot see her if she is working. She is planning on taking 1-2 weeks off, she will see what Dr skinner are at [place].
[facility] brochure provided with contact information. Patient is aware that [facility] will contact them for start of care in 1-2 days after discharge from .
[facility] referral completed in [facility].
[2024-03-14 15:00] VITALS: BP 132/65
--- NOTE | 2024-03-14 16:43 | CM ---
Spoke with pt in room .
Pt has an IR drain.
Offered VN she requested [facility] .
Stephanie Rhoades [facility] liaison notified of referral.
PLAN Home with [facility]
[2024-03-14] MEDS: LOVENOX 40 MG SC (17:03)
--- NOTE | 2024-03-14 17:23 | W.PN.HOSP.TC ---
Today's Communication/Plan
-
Pain improved, diet advanced
Continue IV antibiotics for now, as per colorectal surgery
Appreciate colorectal surgery
Assessment / Plan
Assessment / Plan
Physical Exam
General: Not in acute distress
HEENT: Normocephalic and Moist mucous membranes
Respiratory: Clear
Cardiac: S1/S2 and Regular Rhythm
GI: Soft, Non Distended and Nontender. Drain present with serosanguinous drainage.
Musculoskeletal: No Cyanosis and No Edema
Skin: Warm and Dry
Neuro: Awake, Alert, AO x 3 and Nonfocal/grossly intact
Psych: Calm and Intact Judgment/Insight
Assessment/Plan
Presentation with abdominal pain, diarrhea, chills
Probable Sigmoid Colitis on CT Imaging
Colonic Diverticula on CT Imaging
Colonic Abscess - 3.8 cm abscess associated with mild inflammation of the sigmoid colon, s/p IR drain
Colonic Perforation
-Zosyn given in the ER
-Continue antibiotics with Rocephin and Flagyl
-IR drain placed on 03/14/24
-Diet advanced from NPO to Full Liquids
-Colorectal surgery consulted, appreciate evaluation and recommendations
-Continue IV antibiotics for now as per colorectal surgery
History of intermittent constipation
GERD
-Continue home PPI or equivalent when able
Arthritis
-Monitor for any pain
DVT PPx: Lovenox
Code Status: Full Code
Anticipated Discharge: 24 - 48 hours
Subjective/Interval History
-
Date of Service: March 14, 2024
Patient was seen and examined. She reported less abdominal pain today.
Objective Data
-
Labs:
Laboratory Results
03/14/24
06:42
WBC 6.6
Hgb 10.9 L
Hct 32.6 L
Plt Count 196
Sodium 142
Potassium 3.5
Chloride 108 H
Carbon Dioxide 17 L
BUN 14
Creatinine 0.7
Glucose 67 L
Calcium 9.2
Vital Signs:
Vital Signs
Temp Pulse Resp BP Pulse Ox
98.0 F 67 16 132/65 100
03/14/24 15:00 03/14/24 15:00 03/14/24 15:00 03/14/24 15:00 03/14/24 15:00
I&O
03/13/24 03/14/24 03/15/24
06:59 06:59 06:59
Intake Total 565 / 565
Output Total 5 / 5
Balance 560 / 560
[2024-03-14 19:07] VITALS: BP 142/67
[2024-03-14 23:24] VITALS: BP 138/68
[2024-03-15] MEDS: NSS IV (02:51)
[2024-03-15] MEDS: TYLENOL 1000 MG PO ×2 (02:53→09:47)
[2024-03-15] MEDS: MIRALAX 17 GRAMS PO (03:22)
[2024-03-15 03:25] VITALS: BP 145/77
[2024-03-15] MEDS: FLAGYL 500 MG 100 IV (05:34)
[2024-03-15 05:50] LABS: % Basophils 0.7 % (0-2); % Eosinophils 1.5 % (0-6); % Immature Granulocytes 1.2 % (0-0.5); % Lymphocytes 14.1 % (20.5-51.1); % Monocytes 8.8 % (1.7-9.3); % Neutrophils 73.7 % (42.2-75.2); Absolute Basophils 0.1 10^3/uL (0-0.2); Absolute Eosinophils 0.1 10^3/uL (0-0.7); Absolute Immature Granulocytes 0.1 10^3/uL (0-0.05); Absolute Monocytes 0.6 10^3/uL (0.1-0.6); Absolute Neutrophils 5.4 10^3/uL (1.4-6.5); Hematocrit 33.6 % (37.0-47.0); Hemoglobin 11.6 g/dL (12.0-16.0); Mean Corp Hgb Conc. 34.5 g/dL (33.0-37.0); Mean Corpuscular Hgb 27.8 pg (27.0-31.0); Mean Corpuscular Volume 80.4 fL (81.0-99.0); Mean Platelet Volume 10.7 fL (7.4-10.4); Nucleated Red Blood Cells % 0 %; Platelet Count 216 10^3/uL (130-400); Red Blood Cell Count 4.18 10^6/uL (4.20-5.40); Red Cell Dist. Width 13.1 % (11.5-14.5); White Blood Cell Count 7.3 10^3/uL (4.8-10.8)
[2024-03-15 06:14] LABS: Blood Urea Nitrogen 10 mg/dl (7-17); Calcium 9.1 mg/dl (8.4-10.2); Carbon Dioxide 23 mmol/L (22-30); Chloride 106 mmol/L (98-107); Estimated Creatinine Clearance 63 ml/min; Glucose 105 mg/dl (70-99); Potassium 3.7 mmol/L (3.5-5.1); Sodium 139 mmol/L (135-145); eGFR > 60.00
[2024-03-15 07:00] VITALS: BP 138/68
[2024-03-15] MEDS: VITAMIN D3 (cholecalciferol) 25 MCG PO (08:05)
[2024-03-15] MEDS: PROTONIX 40 MG PO (08:06)
[2024-03-15] MEDS: THERAGRAN 1 TABLET PO (08:06)
--- NOTE | 2024-03-15 09:56 | W.PN.CRS1 ---
Today's Communication / Plan
-
low residue diet
Assessment/Plan
-
3.8 cm abscess associated with mild inflammation of the sigmoid colon, s/p IR drain
- WBC normal, vitals normal.
- Advance diet to low residue.
- Continue IR drain in place - will need eventual study as an outpatient
- Continue IV antibiotics
- Cultures pending
- May ultimately require surgery, to be discussed as an outpatient
- Okay for d/c from our perspective later today if tolerating a low residue diet with a course of outpatient antibiotics. Will need to follow up with Dr. Miller in the office in two weeks. She will call the office if her drain has minimal output.
Will need eventual drain study.
Subjective Data
Subjective Data
Date of Service: March 15, 2024
Patient states she feels much improved since the IR drain. She has minimal pain. She had a bowel movement yesterday after taking miralax. She currently has no complaints.
Objective Data
-
Vital Signs
Temp Pulse Resp BP Pulse Ox
97.8 F 67 16 138/68 99
03/15/24 07:00 03/15/24 07:00 03/15/24 07:00 03/15/24 07:00 03/15/24 07:00
Intake & Output
03/14/24 03/15/24 03/16/24
06:59 06:59 06:59
Intake Total 565 / 565 1710 / 1710
Output Total
Balance 560 / 560 1690 / 1690
Intake:
Oral fluids 480 / 480 1700 / 1700
IV fluids (Total) 75 / 75
NSS 75 / 75
Amount instilled into Drain (
Total)
Left Lower Back Placed in IR
Output:
Drain Output (Total)
Left Lower Back Placed in IR
Other:
Number of approximated MODERATE 1 2
amounts of urine
Lab Results
03/15/24 05:17
03/15/24 05:17
Physical Exam
-
General: No Acute Distress and AOx3
Abdomen: Soft, Non Distended, Non Tender and Other (IR drain with serous output)
Skin: Warm and Dry
--- NOTE | 2024-03-15 10:36 | CON.ID ---
Consultation
-
Date/Time Consultation Requested: 03/15/2024 0750
Date/Time Consultation Performed: 03/15/2024 1020
Requesting Provider: Dr. Juárez
Performing Provider: Dr. Merritt
Reason for Consultation: Diverticular abscess
Chief Complaint / Past History
History of Present Illness
Nichole Lombardi is a 73-year-old female being evaluated in infectious disease consultation regarding diverticular abscess. History is obtained from chart review, along with patient interview.
The patient reports that she recently was in the [facility] on vacation. She reports that she was there for 2 days and then developed some diarrhea along with abdominal discomfort and cramps. These seem to subside, but she returned to the
[place] area. She was subsequently seen in a urgent care and was prescribed Augmentin. Despite taking antibiotics, the pain continued, and she presented to the emergency room on 03/13. Subsequent CT imaging was suggestive of a diverticular
abscess, and she underwent drain placement. Cultures from the drain are now showing Klebsiella oxytoca, and Infectious Diseases is asked to manage further antibiotic therapy.
She denies any prior fevers, but noted significant abdominal pain, being 9/10 at its worst. Pain is at this point in time mostly subsided. She denies any cough or congestion. She denies any dysuria.
Past History
Additional Past Medical History:
Prediabetes
Osteoarthritis
GERD
Additional Past Surgical History:
Tonsillectomy
Left breast lumpectomy
Sinus polypectomy
Allergy History:
doxycycline Allergy (Verified 03/13/24 05:46)
Nausea
Medications Reviewed: Yes
Current Antibiotics:
Ceftriaxone
Metronidazole
Social History
Tobacco: Former Smoker (Quit X 40 years)
Alcohol: Occasional
Drug: None
Personal:
Living: With Family
Employment: Employed
Family History
Family History: Not Pertinent
Review of Systems
Vital Signs
Temp Pulse Resp BP Pulse Ox
97.8 F 67 16 138/68 99
03/15/24 07:00 03/15/24 07:00 03/15/24 07:00 03/15/24 07:00 03/15/24 07:00
Physical Exam
Physical Exam
Constitutional: No Acute Distress, Well Developed, Comfortable and Non-toxic
Head: Normocephalic
Eyes: Pupils Equal, Pupils Round, No Conjunctival Hemorrhage and Sclera Anicteric
Oral: No Thrush and No Ulcers
Cardiovascular: Regular Rate and S1/S2; Negative S3/S4
Pulmonary: Clear; Negative Wheezes, Rales or Rhonchi
Gastrointestinal: Soft, Non Tender, Non Distended and Other (Left MARY in place with scant fluid)
Genito-Urinary: Negative Jo
Extremities: Negative Edema, Cyanosis or Erythema
Neurological: Awake and Alert
Psychological: Calm
.
Lab / Diagnostic Study Results
03/15/24 05:17
03/15/24 05:17
Abs Immat Gran (auto) 0.1 10^3/uL (0-0.05) H 03/15/24 05:17
Absolute Neuts (auto) 5.4 10^3/uL (1.4-6.5) 03/15/24 05:17
Absolute Lymphs (auto) 1.0 10^3/uL (1.2-3.4) L 03/15/24 05:17
Absolute Monos (auto) 0.6 10^3/uL (0.1-0.6) 03/15/24 05:17
Absolute Basos (auto) 0.1 10^3/uL (0-0.2) 03/15/24 05:17
Immature Gran % 1.2 % (0-0.5) H 03/15/24 05:17
Neutrophils % 73.7 % (42.2-75.2) 03/15/24 05:17
Lymphocytes % 14.1 % (20.5-51.1) L 03/15/24 05:17
Monocytes % 8.8 % (1.7-9.3) 03/15/24 05:17
Eosinophils % 1.5 % (0-6) 03/15/24 05:17
Basophils % 0.7 % (0-2) 03/15/24 05:17
PT 13.6 Sec (11.4-14.6) 03/13/24 10:32
INR 1.06 03/13/24 10:32
Ur Squamous Epith Cells 0-2 /LPF (Few) 03/13/24 08:55
Microbiology Results
Micro:
03/13/24 15:35 Wound Culture - Final
Abscess Klebsiella oxytoca
Gram Stain - Final
Wound/abscess/other Cult Final 03/13/24
Rare Klebsiella oxytoca
Organism 1 Klebsiella oxytoca
1. Klebsiella oxytoca
M.I.C. RX
--------- ---
Amoxicillin/Potas. Clavulanate <=8/4 S
Ampicillin >16 R
Ampicillin/Sulbactam <=4/2 S
Aztreonam <=4 S
Cefazolin <=2 S
Ertapenem <=0.5 S
Ciprofloxacin <=0.25 S
Gentamicin <=2 S
Meropenem <=1 S
Piperacillin/Tazobactam <=8 S
Tetracycline <=4 S
Tobramycin <=2 S
Trimethoprim/Sulfamethoxazole <=2/38 S
Imaging:
03/09/2024 CT abdomen/pelvis with IV contrast: There is likely colitis involving the sigmoid colon. There is a suspected 3.8 cm confined perforation with abscess in the posterior pelvis. Hepatic hemangioma noted. Renal cysts are seen.
Assessment / Plan
Diverticular abscess
- Culture with Klebsiella oxytoca
Abdominal pain; improved
Recommendations:
Patient tentatively for discharge today.
Sensitivities of recovered isolate reviewed.
Will transition to ciprofloxacin 500 mg p.o. twice daily and metronidazole 500 mg p.o. TID, to complete an additional 7 to 10 days of therapy.
Patient reports that she will be followed by Colorectal Surgery in regards to drain management and potential subsequent surgery.
[2024-03-15 11:00] VITALS: BP 136/64
--- NOTE | 2024-03-15 12:54 | W.PN.HOSP.TC ---
Today's Communication/Plan
-
Discharge today
Assessment / Plan
Assessment / Plan
Physical Exam
General: Not in acute distress
HEENT: Normocephalic and Moist mucous membranes
Respiratory: Clear
Cardiac: S1/S2 and Regular Rhythm
GI: Soft, Non Distended and Nontender. Drain present with serous drainage.
Musculoskeletal: No Cyanosis and No Edema
Skin: Warm and Dry
Neuro: Awake, Alert, AO x 3 and Nonfocal/grossly intact
Psych: Calm and Intact Judgment/Insight
Assessment/Plan
Presentation with abdominal pain, diarrhea, chills
Probable Sigmoid Colitis on CT Imaging
Colonic Diverticula on CT Imaging
Colonic Abscess - 3.8 cm abscess associated with mild inflammation of the sigmoid colon, status post IR drain
Colonic Perforation
-Zosyn given in the ER
-Continue antibiotics with Rocephin and Flagyl
-IR drain placed on 03/14/24
-Diet advanced from NPO to Full Liquids to Low Residue
-Colorectal surgery consulted, appreciate evaluation and recommendations
-Transition to ciprofloxacin 500 mg p.o. twice daily and metronidazole 500 mg p.o. TID, to complete an additional 7 to 10 days of therapy. Appreciate ID evaluation and recommendations.
-Follow up with Dr. Miller in his office in two weeks
History of intermittent constipation
GERD
-Continue home PPI or equivalent when able
Arthritis
-Monitor for any pain
DVT PPx: Lovenox
Code Status: Full Code
More than 30 minutes spent in discharge including
Final examination of the patient
Summarizing hospital stay
Instructions for continuing care to all relevant caregivers
Preparation of discharge records, prescriptions, and referral forms
Total time spent (in minutes): 40
Anticipated Discharge: Today
Subjective/Interval History
-
Date of Service: March 15, 2024
Patient was seen and examined. She reported that her pain was pretty much gone. She is open to going home today.
Objective Data
-
Labs:
Laboratory Results
03/15/24
05:17
WBC 7.3
Hgb 11.6 L
Hct 33.6 L
Plt Count 216
Sodium 139
Potassium 3.7
Chloride 106
Carbon Dioxide 23
BUN 10
Creatinine 0.5 L
Glucose 105 H
Calcium 9.1
Vital Signs:
Vital Signs
Temp Pulse Resp BP Pulse Ox
98.1 F 64 16 136/64 98
03/15/24 11:00 03/15/24 11:00 03/15/24 11:00 03/15/24 11:00 03/15/24 11:00
I&O
03/14/24 03/15/24 03/16/24
06:59 06:59 06:59
Intake Total 565 / 565 1710 / 1710
Output Total 5 / 5 / 20
Balance 560 / 560 1690 / 1690
[2024-03-15] MEDS: FLAGYL 500 MG PO (15:05)
--- NOTE | 2024-03-15 15:23 | CM ---
entered order for discharge.
Pt has an IR drain.
Stephanie Rhoades [facility] liaison set up [facility] .
Daughter Odalys li drive her home.
PLAN Home with [facility]
[2024-03-15 15:24] VITALS: BP 131/64
== END 2024-03-15 15:49 | disposition home health service (06) | DRG 391 ==
LOC: 3 WEST ACU 11:16
PROVIDERS: Radiology Vascular & Interventional Radiology; ADMITTING PHYSICIAN Hospitalist; CONSULT PHYSICIAN Internal Medicine Infectious Disease; CONSULT PHYSICIAN Surgery; EMERGENCY PHYSICIAN Emergency Medicine; FAMILY PHYSICIAN Internal Medicine
PROC: 0W9J30Z Drainage of Pelvic Cavity with Drainage Device, Percutaneous Approach (ICD-10-PCS; 2024-03-13)
DX: K57.20 Diverticulitis of large intestine with perforation and abscess without bleeding (principal); K65.1 Peritoneal abscess; Z87.891 Personal history of nicotine dependence; K52.9 Noninfective gastroenteritis and colitis, unspecified; K21.9 Gastro-esophageal reflux disease without esophagitis; M19.90 Unspecified osteoarthritis, unspecified site
CPT/HCPCS: 49406; 74177; 80048; 80053; 81003; 81015; 83690; 83735; 85025; 85610; 87070; 87077; 87186; 87205; 93005; 96365; 96375; 99152; 99153; 99285; Q9967

== ENCOUNTER → 2024-03-28 13:06 | Outpatient (REF) | payer MEDICARE, BC, SELFPAY ==
[2024-03-28 13:18] VITALS: BP 143/95; BP_SYST 80
== END ==
LOC: RADI 13:06
PROVIDERS: ATTENDING PHYSICIAN Physician Assistant; FAMILY PHYSICIAN Internal Medicine
DX: Z46.82 Encounter for fitting and adjustment of non-vascular catheter (principal); K65.1 Peritoneal abscess
CPT/HCPCS: 49424; 76080

== ENCOUNTER 2024-07-20 06:07 | Inpatient (IN) | payer MEDICARE, BC, SELFPAY ==
[2024-07-09 08:46] LABS: Hematocrit 41.1 % (37.0-47.0); Hemoglobin 13.7 g/dL (12.0-16.0); Mean Corp Hgb Conc. 33.3 g/dL (33.0-37.0); Mean Corpuscular Hgb 28.3 pg (27.0-31.0); Mean Corpuscular Volume 84.9 fL (81.0-99.0); Mean Platelet Volume 10.8 fL (7.4-10.4); Platelet Count 219 10^3/uL (130-400); Red Blood Cell Count 4.84 10^6/uL (4.20-5.40); Red Cell Dist. Width 13.2 % (11.5-14.5)
[2024-07-09 08:59] LABS: PT 12.4 Sec (11.4-14.6)
[2024-07-09 09:00] LABS: APTT 25.1 Sec (23.4-35.0)
[2024-07-09 09:07] LABS: Glycohemoglobin (HgbA1c) 5.2 % (4.0-5.6)
[2024-07-09 09:32] LABS: ALT (SGPT) 69 U/L (0-35); AST (SGOT) 45 U/L (14-36); Albumin 4.4 g/dl (3.5-5.0); Alkaline Phosphatase 83 U/L (38-126); Blood Urea Nitrogen 20 mg/dl (7-17); Calcium 9.6 mg/dl (8.4-10.2); Carbon Dioxide 28 mmol/L (22-30); Chloride 101 mmol/L (98-107); Glucose 94 mg/dl (70-99); Potassium 4.3 mmol/L (3.5-5.1); Sodium 139 mmol/L (135-145); Total Bilirubin 0.6 mg/dl (0.2-1.3); Total Protein 6.9 g/dl (6.3-8.2); eGFR > 60.00
[2024-07-09 14:02] VITALS: BMI 23.4
[2024-07-20] VITALS (16 sets, daily range): BP systolic 107–169; BP diastolic 53–89; BMI 23.4
[2024-07-20] MEDS: ENTEREG 12 MG PO (07:13)
[2024-07-20] MEDS: HEPARIN 5000 UNITS SC (07:13)
[2024-07-20] MEDS: TYLENOL 1000 MG PO (07:13)
[2024-07-20] MEDS: NORMOSOL-R/PLASMALYTE-A 1000 IV ×2 (07:14→15:53)
--- NOTE | 2024-07-20 11:32 | W.IMMPOSTOP ---
Surgical Immed Post Op Note
-
Primary Surgeon: Nuno Miller MD
Assistants: ADITYA Edmond and MACARIO Guerin
Pre-op Diagnosis: History of sigmoid diverticulitis with abscess
Post-op Diagnosis: Same
Procedure Performed: Robotic sigmoid colectomy with intracorporeal anastomosis
Anesthesia Type: GET
Specimen / Cultures: Sigmoid colon (suture is proximal)
Estimated Blood Loss: 15cc
Complications: None
Operative Findings: Chronic distal sigmoid diverticulitis
28mm EEA
Normal leak test
Patient's daughter updated.
[2024-07-20] MEDS: TYLENOL PO (12:57)
[2024-07-20] MEDS: TORADOL 15 MG IV ×2 (13:00→19:32)
[2024-07-20] MEDS: TYLENOL 650 MG PO ×2 (15:52→21:13)
[2024-07-20 16:24] LABS: Glucose - Point of Care 109 mg/dl (70-99)
--- NOTE | 2024-07-20 20:00 | PTCARENOTE ---
Pt. resting in bed post op, AAO x 3, vs stable, abdominal with 4 stab sites and one lower horizontal site intact, IVF's infusing, call thrasher at bedside.
[2024-07-21] MEDS: NORMOSOL-R/PLASMALYTE-A 1000 IV (00:02)
[2024-07-21] MEDS: TORADOL 15 MG IV ×4 (00:02→23:52)
[2024-07-21] MEDS: TYLENOL PO ×2 (00:06→04:14)
[2024-07-21 06:00] VITALS: BMI 22.9
[2024-07-21 07:45] VITALS: BP 112/53
[2024-07-21 07:50] LABS: % Basophils 0.1 % (0-2); % Eosinophils 0.1 % (0-6); % Immature Granulocytes 0.5 % (0-0.5); % Lymphocytes 23.5 % (20.5-51.1); % Neutrophils 66.8 % (42.2-75.2); Absolute Lymphocytes 1.9 10^3/uL (1.2-3.4); Absolute Monocytes 0.7 10^3/uL (0.1-0.6); Absolute Neutrophils 5.4 10^3/uL (1.4-6.5); Hematocrit 33.6 % (37.0-47.0); Hemoglobin 11.6 g/dL (12.0-16.0); Mean Corp Hgb Conc. 34.5 g/dL (33.0-37.0); Mean Corpuscular Hgb 28.9 pg (27.0-31.0); Mean Corpuscular Volume 83.6 fL (81.0-99.0); Mean Platelet Volume 11.2 fL (7.4-10.4); Nucleated Red Blood Cells % 0 %; Platelet Count 181 10^3/uL (130-400); Red Blood Cell Count 4.02 10^6/uL (4.20-5.40); Red Cell Dist. Width 12.7 % (11.5-14.5); White Blood Cell Count 8.1 10^3/uL (4.8-10.8)
[2024-07-21 08:23] LABS: Blood Urea Nitrogen 9 mg/dl (7-17); Calcium 8.6 mg/dl (8.4-10.2); Carbon Dioxide 27 mmol/L (22-30); Chloride 103 mmol/L (98-107); Estimated Creatinine Clearance 57 ml/min; Glucose 98 mg/dl (70-99); Potassium 3.8 mmol/L (3.5-5.1); Sodium 138 mmol/L (135-145); eGFR > 60.00
[2024-07-21] MEDS: PROTONIX 20 MG PO (09:56)
[2024-07-21] MEDS: ENTEREG 12 MG PO ×2 (09:57→21:06)
[2024-07-21] MEDS: TYLENOL 650 MG PO ×4 (09:57→21:06)
[2024-07-21 11:40] VITALS: BP 141/67
[2024-07-21] MEDS: NORMOSOL-R/PLASMALYTE-A IV (12:29)
[2024-07-21] MEDS: TORADOL IV ×2 (14:07→17:39)
[2024-07-21 15:09] VITALS: BP 105/60
--- NOTE | 2024-07-21 15:56 | W.PN.CRS1 ---
Addendum entered and electronically signed by Raj Rizo MD 07/21/24 19:28:
I saw and examined the patient.
The VISUAL EFFECTS ARTIST's note was reviewed and I agree with the note.
Comment:
No issues overnight. No N/V, having flatus and BMs, pain controlled.
AFVSS, ABD soft, mildly distended, appropriately tender; incisions clean dry and intact
WBC 8.1, Hb 11.6, Cr 0.7
�Advance to low residue
� Start DVT PPx with Lovenox
� Continue pain control with Tylenol, Toradol, oxycodone and Dilaudid as needed; continue Entereg until discharge
� DC George, monitor for void
� Encourage OOB/IS
Original Note:
Today's Communication / Plan
-
LRD
Assessment/Plan
-
73 yo female with h/o sigmoid diverticulitis complicated by abscess now POD #1 Robotic sigmoid colectomy with intracorporeal anastomosis
AFVSS
Mild acute anemia secondary to expected intraoperative losses and hemodilution
Following expected post operative course
--Advance to LRD
--D/C george for voiding trial
--d/c IVF
--prn and scheduled analgesics
--c/w PPI (takes at home) and home dosage of valtrex
--Lovenox and scds for VTE ppx
Tentative d/c tomorrow if tolerating diet and pain continues to be controlled
Subjective Data
Procedure
07/20/24 Robotic sigmoid colectomy with intracorporeal anastomosis
Subjective Data
Date of Service: July 21, 2024
Patient seen and examined at bedside with Dr. Rizo. Denies n/v. Tolerating liquids. Passing flatus and some brown/blood tinged stools. OOB to chair with family at bedside.
Objective Data
-
Vital Signs
Temp Pulse Resp BP Pulse Ox
97.4 F 79 18 105/60 100
07/21/24 15:09 07/21/24 15:09 07/21/24 15:09 07/21/24 15:09 07/21/24 15:09
Intake & Output
07/20/24 07/21/24 07/22/24
06:59 06:59 06:59
Intake Total 2900 / 2900 1080 / 1080
Output Total 1800 / 1800 225 / 225
Balance 1100 / 1100 855 / 855
Intake:
Oral fluids 1600 / 1600 480 / 480
IV fluids (Total) 1300 / 1300 600 / 600
Normosol 300 / 300
Output:
Urine, George 1150 / 1150 225 / 225
Urine, Voided 650 / 650
Lab Results
07/21/24 07:20
07/21/24 07:20
Physical Exam
-
General: No Acute Distress and AOx3
Abdomen: Soft, Non Distended and Tender (minimal incisional tenderness)
Skin: Warm and Dry
Incision: Clear, Dry, Intact (dermabond intact)
[2024-07-21 23:08] VITALS: BP 114/54
[2024-07-22] MEDS: TYLENOL PO (01:17)
[2024-07-22] MEDS: TYLENOL 650 MG PO ×3 (04:43→13:26)
[2024-07-22 05:17] LABS: Hematocrit 35.2 % (37.0-47.0); Hemoglobin 11.7 g/dL (12.0-16.0); Mean Corp Hgb Conc. 33.2 g/dL (33.0-37.0); Mean Corpuscular Hgb 28.2 pg (27.0-31.0); Mean Corpuscular Volume 84.8 fL (81.0-99.0); Mean Platelet Volume 11.3 fL (7.4-10.4); Platelet Count 173 10^3/uL (130-400); Red Blood Cell Count 4.15 10^6/uL (4.20-5.40); Red Cell Dist. Width 12.7 % (11.5-14.5)
[2024-07-22 05:36] LABS: Blood Urea Nitrogen 13 mg/dl (7-17); Calcium 8.9 mg/dl (8.4-10.2); Carbon Dioxide 27 mmol/L (22-30); Chloride 106 mmol/L (98-107); Estimated Creatinine Clearance 57 ml/min; Glucose 99 mg/dl (70-99); Sodium 140 mmol/L (135-145); eGFR > 60.00
[2024-07-22 06:00] VITALS: BMI 23.0
[2024-07-22] MEDS: TORADOL 15 MG IV (06:00)
[2024-07-22 07:50] VITALS: BP 128/69
[2024-07-22] MEDS: PROTONIX 20 MG PO (08:22)
[2024-07-22] MEDS: ENTEREG 12 MG PO (08:23)
--- NOTE | 2024-07-22 09:59 | W.PN.CRS1 ---
Addendum entered and electronically signed by Raj Rizo MD 07/22/24 15:09:
I saw and examined the patient.
The [employer] REPAIRER's note was reviewed and I agree with the note.
Comment:
Tolerating diet with bowel function, no further blood in the stool. Okay for DC on low residue for 1 week, follow-up Dr. Miller in 2 to 4 weeks.
Original Note:
Today's Communication / Plan
-
Dispo planning
Assessment/Plan
-
73 yo female with h/o sigmoid diverticulitis complicated by abscess now POD #2 Robotic sigmoid colectomy with intracorporeal anastomosis
AFVSS
Labs stable
Good evidence of bowel recovery
Following expected post operative course
--Advance to LRD
--Analgesics as needed
--c/w PPI (takes at home) and home dosage of valtrex
--Lovenox and scds for VTE ppx
Discharge to home
Subjective Data
Procedure
07/20/24 Robotic sigmoid colectomy with intracorporeal anastomosis
Subjective Data
Date of Service: July 22, 2024
Patient seen and examined at bedside with Dr. Rizo. Denies n/v. Tolerating diet. Pain is minimal. Passing flatus and brown stools. Voiding well.
Objective Data
-
Vital Signs
Temp Pulse Resp BP Pulse Ox
97.6 F 65 18 128/69 100
07/22/24 07:50 07/22/24 07:50 07/22/24 07:50 07/22/24 07:50 07/22/24 07:50
Intake & Output
07/21/24 07/22/24 07/23/24
06:59 06:59 06:59
Intake Total 2900 / 2900 2400 / 2400
Output Total 1800 / 1800 225 / 225
Balance 1100 / 1100 2175 / 2175
Intake:
Oral fluids 1600 / 1600 1800 / 1800
IV fluids (Total) 1300 / 1300 600 / 600
Normosol 300 / 300
Output:
Urine, Jo 1150 / 1150 225 / 225
Urine, Voided 650 / 650
Other:
Number of approximated MODERATE 3
amounts of urine
Number of unmeasured liquid
stools
Rectum 2
Lab Results
07/22/24 04:33
07/22/24 04:33
Physical Exam
-
General: No Acute Distress and AOx3
Abdomen: Soft, Non Distended and Tender (minimal incisional tenderness)
Skin: Warm and Dry
Incision: Clear, Dry, Intact (dermabond intact)
--- NOTE | 2024-07-22 10:25 | CM ---
Addendum entered by Chayito Zamudio 07/22/24 11:39:
For discharge today
Reports will have ride home
Given IMM
Plan - home no needs
Original Note:
Met with pt and her friend at bedside
Pt reports she lives with her in a 3 story town home; 8 steps to enter, 16 steps to 2nd fl. + 1/2 bath on FF
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
DME - none
SNF - denies past hx
HH - [facility] in past
Has ride at discharge
PCP - Alex Bartholomew
Pharm - [facility]
Plan - anticipate home no needs
[2024-07-22 13:15] VITALS: BP 126/58
[2024-07-22] MEDS: TORADOL IV (13:25)
--- NOTE | 2024-07-22 14:11 | W.DCSUMMARY ---
Discharge Summary
Discharge Data
Date of Admission: 07/20/24
Date of Discharge: 07/22/24
-
Pending Results: No
Hospital Course
73 yo female with a history of sigmoid diverticulitis who presented for robotic sigmoidectomy. She tolerated the procedure well without complication. Diet was able to be advanced and well tolerated post operative with good bowel recovery. Pain was
minimal and well controlled prior to discharge. Outpatient follow up arranged in the coming weeks.
Discharge Plan
-
Patient Disposition: Home (Routine Discharge)
Discharge Diagnosis/Procedures: Robotic sigmoidectomy
Condition: Good
Diet: Low Fiber
Activity: No strenuous activity
Additional Activity: Do not lift over 10 lbs (gallon of milk)
Driving Restrictions: Wait until comfortable twisting/off narcotics
Bathing Restrictions: OK to Shower
Wound Care: Allow the glue over your incisions to flake off on its own. Avoid scrubbing or picking off. Do not soak in a tub or pool for 2 weeks, showering is ok.
Activity Restrictions/Additional Instructions:
Call your surgeon if you have nausea with vomiting, worsening pain or a fever >100.5
Referrals:
Quique Miller MD [Active] - in two to three weeks
Alex Rutherford MD [Family Provider] -
Prescriptions:
New
acetaminophen [acetaminophen] 325 mg tablet
650 mg PO Q4HPRN PRN (Reason: mild pain) Qty: 1 0RF
tramadol 50 mg tablet
25 - 50 mg PO Q6HPRN PRN (Reason: severe pain/breakthrough pain) Qty: 15 0RF
Continued
meloxicam 7.5 mg tablet
7.5 mg PO DAILY PRN (Reason: Pain)
omeprazole 20 mg capsule,delayed release(DR/EC)
20 mg PO DAILY
glucosamine-chondroitin [Osteo Bi-Flex] 250-200 mg Tablet
1 tab PO DAILY
cholecalciferol (vitamin D3) 25 mcg (1,000 unit) Tablet
25 mcg PO DAILY
turmeric 400 mg Capsule
400 mg PO DAILY
multivitamin Tablet
1 tab PO DAILY
valacyclovir [Valtrex] 500 mg Tablet
500 mg PO DAILY PRN (Reason: herpes)
calcium carbonate 500 mg calcium (1,250 mg) Tablet
1,000 mg PO DAILY
fluticasone propionate 50 mcg/actuation Okay,Suspension
1 spray INTRANASAL BID PRN (Reason: congestion)
Align (B.infantis) 4 mg Capsule
4 mg PO DAILY
Held
psyllium Packet
1 packet PO DAILY
Hold Instructions: Resume on 07/29/24.
Discontinued
metronidazole [Flagyl] 500 mg Tablet
500 mg PO PRE OP
Patient Comments:
Patient took at 14:00, 15:00 and 22:00.
neomycin 500 mg Tablet
500 mg PO PRE OP
Patient Comments:
Patient took at 14;00, 15:00, and 22:00.
Sutab 1.479-0.188- 0.225 gram Tablet
0 tab PO PRE OP
Discharge Orders:
Discharge Patient (As Directed); Ordered 07/22/24
Ordered By: Jazmine Russell
Discharge Date and Time
Discharge Date/Time: 07/22/24 13:54
Print Language: YAKUT
== END 2024-07-22 13:54 | disposition home or self-care (01) | DRG 331 ==
LOC: 2 SOUTH 06:07
PROVIDERS: Registered Nurse; ADMITTING PHYSICIAN Surgery; FAMILY PHYSICIAN Internal Medicine
PROC: 0DNP4ZZ Release Rectum, Percutaneous Endoscopic Approach (ICD-10-PCS; 2024-07-20)
PROC: 8E0W4CZ Robotic Assisted Procedure of Trunk Region, Percutaneous Endoscopic Approach (ICD-10-PCS; 2024-07-20)
PROC: 0DJD8ZZ Inspection of Lower Intestinal Tract, Via Natural or Artificial Opening Endoscopic (ICD-10-PCS; 2024-07-20)
PROC: 0DTN4ZZ Resection of Sigmoid Colon, Percutaneous Endoscopic Approach (ICD-10-PCS; 2024-07-20)
DX: K57.20 Diverticulitis of large intestine with perforation and abscess without bleeding (principal); D64.9 Anemia, unspecified; K66.0 Peritoneal adhesions (postprocedural) (postinfection)
CPT/HCPCS: 88307; 36415; 80048; 80053; 82962; 83036; 85025; 85027; 85610; 85730; 86850; 86900; 86901; J1335